=== PATIENT | male | born 1985 | race Caucasian/White ===

== ENCOUNTER 2016-10-15 21:32 | Emergency (ER) | payer MEDICAID, OTHER, SELFPAY ==
[~2016-10-15] VITALS: Ht 167.6 cm; Wt 63.5 kg
[2016-10-15 21:33] VITALS: BP 111/57
== END 2016-10-15 23:02 | disposition home or self-care (01) ==
LOC: M ED 22:16
DX: M79.672 Pain in left foot (principal)

== ENCOUNTER → 2019-03-22 | Outpatient (CLI) | payer MEDICAID ==
[2019-03-22 12:27] LABS: HEMATOCRIT 41.6 % (42.0-52.0); MEAN CORPUSCULAR HEMOGLOBIN 29.7 pg (27.0-33.0); MEAN CORPUSCULAR HGB CONC 33.7 g/dl (32.0-36.5); MEAN CORPUSCULAR VOLUME 88.1 fl (80.0-96.0); PLATELET COUNT, AUTOMATED 269 10^3/uL (150-450); RED BLOOD COUNT 4.72 10^6/uL (4.30-6.10); WHITE BLOOD COUNT 8.3 10^3/uL (4.0-10.0)
[2019-03-22 12:48] LABS: ALBUMIN 3.8 GM/DL (3.2-5.2); ALT/SGPT 129 U/L (12-78); BILIRUBIN,TOTAL 0.3 MG/DL (0.2-1.0); BLOOD UREA NITROGEN 16 MG/DL (7-18); CALCIUM LEVEL 9.2 MG/DL (8.5-10.1); CARBON DIOXIDE LEVEL 28 MEQ/L (21-32); CHLORIDE LEVEL 106 MEQ/L (98-107); GLOMERULAR FILTRATION RATE > 60.0 (>60); GLUCOSE, FASTING 101 MG/DL (70-100); POTASSIUM SERUM 3.7 MEQ/L (3.5-5.1); SODIUM LEVEL 142 MEQ/L (136-145); TOTAL PROTEIN 8.2 GM/DL (6.4-8.2)
[2019-03-22 13:08] LABS: HEPATITIS B SURFACE ANTIGEN NEGATIVE (NEGATIVE)
[2019-03-22 13:37] LABS: HIV 1&2 SCREEN CENTAUR NEGATIVE (NEGATIVE)
[2019-03-22 13:43] LABS: HEPATITIS C VIRUS ABY INDEX > 11.0 INDEX (<0.8)
[2019-03-22 14:07] LABS: CHLAMYDIA DNA AMPLIFICATION NEGATIVE (NEGATIVE); GC DNA AMPLIFICATION NEGATIVE (NEGATIVE)
--- NOTE | 2019-03-23 14:51 | ECGEPIP ---
[facility] Test Date: 2019-03-22 Pat Name: KAITLYNN KELLER Department: Room: - Gender: Male Major Account Representative: LENY : 1985 Requested By: Alton Rendon Order Number: [id number] Reading MD: Manuel Ashley Measurements Intervals [place] Rate: 59 P: 31 MT: 124 QRS: 57 QRSD: 99 T: 46 QT: 387 QTc: 385 Interpretive Statements SINUS BRADYCARDIA POSSIBLE LEFT VENTRICULAR HYPERTROPHY INFERIOR MYOCARDIAL INFARCTION, OF INDETERMINATE AGE, CANNOT R/O PROBABLE ANTEROLATERAL MYOCARDIAL INFARCTION, OF INDETERMINATE AGE, CANNOT R/O SIMILAR TO 05/09/15 BUT FOR SLOWER HR Electronically Signed on 03-23-2019 14:50:59 EDT by Manuel Ashley
== END ==
LOC: M LAB 10:27
PROVIDERS: ATTEND Family Medicine
DX: F11.20 Opioid dependence, uncomplicated (principal); R00.1 Bradycardia, unspecified

== ENCOUNTER 2021-10-22 01:41 | Emergency (ER) | payer MEDICAID ==
[~2021-10-22] VITALS: Ht 170.2 cm; Wt 68.4 kg
[2021-10-22 07:23] VITALS: BP 103/64
[2021-10-22] MEDS ORDERED: BOOSTRIX/ADACEL VACCINE (DIPHTH/PERTUSS/ACELL/TETANUS) 0.5ML SYR IM ONE (08:20)
== END 2021-10-22 09:02 | disposition left against medical advice (07) ==
LOC: M ED 01:41
DX: S61.210A Laceration without foreign body of right index finger without damage to nail, initial encounter (principal); S61.212S Laceration without foreign body of right middle finger without damage to nail, sequela; W25.XXXA Contact with sharp glass, initial encounter; Y92.009 Unspecified place in unspecified non-institutional (private) residence as the place of occurrence of the external cause; Y93.G1 Activity, food preparation and clean up; Y99.8 Other external cause status; F17.200 Nicotine dependence, unspecified, uncomplicated; Z79.899 Other long term (current) drug therapy

== ENCOUNTER → 2022-02-01 | Outpatient (CLI) | payer OTHER, SELFPAY | LOC: M CARPUL 14:08 | PROVIDERS: ATTEND Nurse Practitioner Family | DX: R01.1 Cardiac murmur, unspecified (principal) ==

== ENCOUNTER → 2022-06-13 | Outpatient (REF) | payer OTHER ==
[2022-06-13 17:12] LABS: BASO % 0.5 % (0.0-1.0); EOS # 0.2 10^3/uL (0.0-0.5); EOS % 3.6 % (0.0-3.0); HEMATOCRIT 40.9 % (42.0-52.0); HEMOGLOBIN 13.3 g/dl (13.5-17.5); LYMPH # 3.2 10^3/uL (1.5-5.0); LYMPH % 52.7 % (24.0-44.0); MEAN CORPUSCULAR HEMOGLOBIN 28.8 pg (27.0-33.0); MEAN CORPUSCULAR HGB CONC 32.5 g/dl (32.0-36.5); MEAN CORPUSCULAR VOLUME 88.5 fl (80.0-96.0); MONO # 0.4 10^3/uL (0.0-0.8); MONO % 6.6 % (2.0-8.0); NEUTROPHILS # 2.2 10^3/uL (1.5-8.5); NEUTROPHILS % 36.4 % (36.0-66.0); PLATELET COUNT, AUTOMATED 303 10^3/uL (150-450); RED BLOOD COUNT 4.62 10^6/uL (4.30-6.10)
[2022-06-13 17:35] LABS: ALT/SGPT 50 U/L (12-78); BILIRUBIN,TOTAL 0.2 MG/DL (0.2-1.0); BLOOD UREA NITROGEN 15 MG/DL (7-18); CALCIUM LEVEL 9.6 MG/DL (8.5-10.1); CARBON DIOXIDE LEVEL 32 MEQ/L (21-32); CHLORIDE LEVEL 103 MEQ/L (98-107); CHOLESTEROL LEVEL 274 MG/DL (<200); CREATININE FOR GFR 1.05 MG/DL (0.70-1.30); GLOMERULAR FILTRATION RATE > 60.0 (>60); GLUCOSE, FASTING 110 MG/DL (70-100); HDL CHOLESTEROL 50 MG/DL (>40); MAGNESIUM LEVEL 1.9 MG/DL (1.8-2.4); NON-HDL-C 224 MG/DL; PHOSPHORUS LEVEL 3.3 MG/DL (2.5-4.9); POTASSIUM SERUM 4.4 MEQ/L (3.5-5.1); SODIUM LEVEL 137 MEQ/L (136-145); TOTAL PROTEIN 8.1 GM/DL (6.4-8.2); TRIGLYCERIDES LEVEL 484 MG/DL (<150)
[2022-06-13 20:46] LABS: HEMOGLOBIN A1c 5.3 %
[2022-06-13 21:02] LABS: TOTAL 25(OH) VITAMIN D 23.9 NG/ML (30.0-100.0)
== END ==
LOC: M LAB REF 16:29
PROVIDERS: ATTEND Nurse Practitioner Family
DX: R94.31 Abnormal electrocardiogram [ECG] [EKG] (principal); Z13.228 Encounter for screening for other metabolic disorders

== ENCOUNTER → 2023-11-01 | Outpatient (REF) | payer OTHER ==
[2023-11-01 17:20] LABS: BASO % 0.4 % (0.0-1.0); EOS # 0.1 10^3/uL (0.0-0.5); EOS % 0.8 % (0.0-3.0); HEMATOCRIT 38.6 % (42.0-52.0); HEMOGLOBIN 13.2 g/dl (13.5-17.5); LYMPH # 3.6 10^3/uL (1.5-5.0); LYMPH % 39.9 % (24.0-44.0); MEAN CORPUSCULAR HEMOGLOBIN 29.1 pg (27.0-33.0); MEAN CORPUSCULAR HGB CONC 34.2 g/dl (32.0-36.5); MONO # 0.6 10^3/uL (0.0-0.8); MONO % 6.7 % (2.0-8.0); NEUTROPHILS # 4.7 10^3/uL (1.5-8.5); NEUTROPHILS % 52.1 % (36.0-66.0); PLATELET COUNT, AUTOMATED 340 10^3/uL (150-450); RED BLOOD COUNT 4.54 10^6/uL (4.30-6.10)
[2023-11-01 17:24] LABS: THYROID STIMULATING HORMONE 4.393 uIU/ML (0.55-4.78)
[2023-11-01 17:26] LABS: ALBUMIN 4.3 G/DL (3.2-5.2); ALKALINE PHOSPHATASE 88 U/L (46-116); ALT/SGPT 78 U/L (7.0-40); AST/SGOT 70 U/L (<34); BILIRUBIN,TOTAL 0.4 MG/DL (0.3-1.2); BLOOD UREA NITROGEN 20 MG/DL (9-23); CALCIUM LEVEL 10.1 MG/DL (8.5-10.1); CARBON DIOXIDE LEVEL 32 MMOL/L (20-31); CHLORIDE LEVEL 102 MMOL/L (98-107); CHOLESTEROL LEVEL 164 MG/DL (<200); CHOLESTEROL RISK RATIO 3.03 (<5); CREATININE FOR GFR 1.06 MG/DL (0.70-1.30); GLOMERULAR FILTRATION RATE > 60.0 (>60); GLUCOSE, FASTING 96 MG/DL (60-100); HDL CHOLESTEROL 54.1 MG/DL (>40); LDL CHOLESTEROL 81.1 MG/DL (<100); MAGNESIUM LEVEL 1.9 MG/DL (1.8-2.4); NON-HDL-C 109.9 MG/DL; SODIUM LEVEL 142 MMOL/L (136-145); TOTAL 25(OH) VITAMIN D 21.6 NG/ML (20.0-100.0); TRIGLYCERIDES LEVEL 144 MG/DL (<150)
[2023-11-01 17:32] LABS: HEMOGLOBIN A1c 5.4 % (4.0-6.0)
[2023-11-01 17:51] LABS: HIV 1&2 SCREEN NEGATIVE (NEGATIVE)
[2023-11-01 18:22] LABS: HEPATITIS C VIRUS ABY INDEX 7.85 INDEX (<0.8)
== END ==
LOC: M LAB REF 16:36
PROVIDERS: ATTEND Physician Assistant
DX: Z00.00 Encounter for general adult medical examination without abnormal findings (principal); E78.2 Mixed hyperlipidemia; E55.9 Vitamin D deficiency, unspecified; Z11.9 Encounter for screening for infectious and parasitic diseases, unspecified